=== PATIENT | male | born 1975 | race Caucasian/White ===

== ENCOUNTER 2018-11-15 19:21 | Outpatient (REF) | payer BC, SELFPAY ==
[2018-11-15 22:29] LABS: ALT 54 U/L (12-78); AST 24 U/L (15-37); Albumin 3.7 g/dL (3.4-5.0); Alkaline Phosphatase 101 U/L (46-116); Anion Gap 5.6 mmol/L (3-11); BUN 13 mg/dL (7-18); Bilirubin, Total 0.6 mg/dL (0.2-1.0); CO2 31.4 mmol/L (21.0-32.0); CREATININE 0.97 mg/dL (0.70-1.30); Chloride 103 mmol/L (98-107); Cholesterol 213 mg/dL (50-200); Glucose 107 mg/dL (70-100); HDL Cholesterol 32 mg/dL (40-60); LDL CHOLESTEROL 154 mg/dL (<100); Potassium 4.5 mmol/L (3.5-5.1); Sodium 140 mmol/L (136-145); Total Protein 7.5 g/dL (6.4-8.2); Triglyceride 218 mg/dL (30-150)
[2018-11-15 22:45] LABS: COMMENT (LAB VIEW ONLY) 185.34 mg/dL; Microalb ug/mg Crea 5.1 ug/mg Cr
[2018-11-15 23:02] LABS: Hemoglobin A1C 6.5 % (4.5-6.2)
[2018-11-19 17:09] LABS: Testosterone, Free 2.52 ng/dL (4.46-17.1); Testosterone, Total 120 ng/dL (240-950)
== END 2018-11-15 19:41 ==
LOC: NCHCN 19:21
PROVIDERS: PCP Family Medicine; Visit Provider Family Medicine
DX: I10 Essential (primary) hypertension (principal); R68.82 Decreased libido; E11.9 Type 2 diabetes mellitus without complications; G47.33 Obstructive sleep apnea (adult) (pediatric); Z87.898 Personal history of other specified conditions; E66.01 Morbid (severe) obesity due to excess calories; Z82.79 Family history of other congenital malformations, deformations and chromosomal abnormalities
CPT/HCPCS: 80053; 80061; 83721; 84402; 84403; 82043; 82570; 83036

== ENCOUNTER 2019-11-14 22:14 | Outpatient (REF) | payer BC, SELFPAY ==
[2019-11-14 22:55] LABS: ALT 52 U/L (16-63); AST 19 U/L (15-37); Alkaline Phosphatase 102 U/L (46-116); Anion Gap 7.1 mmol/L (3-11); BUN 13 mg/dL (7-18); Bilirubin, Total 0.5 mg/dL (0.2-1.0); CO2 29.9 mmol/L (21.0-32.0); CREATININE 0.98 mg/dL (0.70-1.30); Calcium 8.8 mg/dL (8.5-10.1); Calculated LDL 63 mg/dL; Chloride 103 mmol/L (98-107); Cholesterol 120 mg/dL (<200); Glucose 134 mg/dL (74-106); HDL Cholesterol 33 mg/dL (40-60); Potassium 4.2 mmol/L (3.5-5.1); Sodium 140 mmol/L (136-145); Total Protein 7.5 g/dL (6.4-8.2); Triglyceride 122 mg/dL (<150)
[2019-11-14 23:04] LABS: Hemoglobin A1C 6.4 % (3.8-5.6)
== END 2019-11-14 22:34 ==
LOC: NCHCN 22:14
PROVIDERS: PCP Family Medicine; Visit Provider Family Medicine
DX: Z00.00 Encounter for general adult medical examination without abnormal findings (principal); E11.9 Type 2 diabetes mellitus without complications; E78.5 Hyperlipidemia, unspecified; E66.01 Morbid (severe) obesity due to excess calories
CPT/HCPCS: 80053; 80061; 83036

== ENCOUNTER 2020-10-22 18:56 | Outpatient (REF) | payer BC, SELFPAY ==
[2020-10-22 22:31] LABS: ALT 44 U/L (16-63); AST 16 U/L (15-37); Albumin 4.1 g/dL (3.4-5.0); Alkaline Phosphatase 98 U/L (46-116); Anion Gap 6.6 mmol/L (3-11); BUN 13 mg/dL (7-18); Bilirubin, Total 0.5 mg/dL (0.2-1.0); CO2 30.4 mmol/L (21.0-32.0); CREATININE 1.06 mg/dL (0.70-1.30); Calcium 8.8 mg/dL (8.5-10.1); Chloride 103 mmol/L (98-107); Glucose 116 mg/dL (74-106); Potassium 4.2 mmol/L (3.5-5.1); Sodium 140 mmol/L (136-145); Total Protein 7.8 g/dL (6.4-8.2)
[2020-10-22 22:35] LABS: COMMENT (LAB VIEW ONLY) 178.04 mg/dL; Microalb ug/mg Crea 5.6 ug/mg Cr
== END 2020-10-22 19:16 ==
LOC: NCHCN 18:56
PROVIDERS: PCP Family Medicine; Visit Provider Family Medicine
DX: Z00.00 Encounter for general adult medical examination without abnormal findings (principal); E11.9 Type 2 diabetes mellitus without complications; R80.9 Proteinuria, unspecified
CPT/HCPCS: 80053; 82043; 82570

== ENCOUNTER 2022-04-07 17:04 | Outpatient (REF) | payer OTHER, SELFPAY ==
[2022-04-07 21:46] LABS: ALT 37 U/L (16-63); Anion Gap 6.1 mmol/L (3-11); BUN 8 mg/dL (7-18); CO2 27.9 mmol/L (21.0-32.0); Calcium 8.5 mg/dL (8.5-10.1); Calculated LDL 124 mg/dL (<100); Chloride 106 mmol/L (98-107); Cholesterol 187 mg/dL (<200); Glucose 137 mg/dL (74-106); HDL Cholesterol 37 mg/dL (40-60); Potassium 4.4 mmol/L (3.5-5.1); Sodium 140 mmol/L (136-145); Triglyceride 133 mg/dL (<150)
[2022-04-07 22:29] LABS: COMMENT (LAB VIEW ONLY) 251.88 mg/dL; Microalb ug/mg Crea 4.6 ug/mg Cr
== END 2022-04-07 17:05 | disposition home or self-care (01) ==
LOC: NCHCN 17:04
PROVIDERS: PCP Family Medicine; Visit Provider Family Medicine
DX: E11.9 Type 2 diabetes mellitus without complications (principal); I10 Essential (primary) hypertension; E66.01 Morbid (severe) obesity due to excess calories; Z00.00 Encounter for general adult medical examination without abnormal findings
CPT/HCPCS: 80048; 80061; 82043; 82570; 84460

== ENCOUNTER 2023-07-13 16:20 | Outpatient (REF) | payer OTHER, SELFPAY ==
[2023-07-13 21:53] LABS: COMMENT (LAB VIEW ONLY) 273.57 mg/dL; Microalb ug/mg Crea 5.5 ug/mg Cr
== END 2023-07-13 16:21 | disposition home or self-care (01) ==
LOC: NCHCN 16:20
PROVIDERS: PCP Family Medicine; Visit Provider Family Medicine
DX: E11.9 Type 2 diabetes mellitus without complications (principal)
CPT/HCPCS: 82043; 82570

== ENCOUNTER 2023-10-12 09:29 | Outpatient (REF) | payer OTHER, SELFPAY ==
[2023-10-12 21:47] LABS: Hemoglobin A1C 5.5 % (<5.7)
[2023-10-12 21:57] LABS: Calculated LDL 152 mg/dL (<100); Cholesterol 215 mg/dL (<200); HDL Cholesterol 38 mg/dL (40-60); Triglyceride 129 mg/dL (<150)
== END 2023-10-12 09:30 | disposition home or self-care (01) ==
LOC: NCHCN 09:29
PROVIDERS: PCP Family Medicine; Visit Provider Family Medicine
DX: E11.9 Type 2 diabetes mellitus without complications (principal)
CPT/HCPCS: 80061; 83036

== ENCOUNTER 2024-01-11 21:12 | Outpatient (REF) | payer OTHER, SELFPAY ==
[2024-01-11 21:54] LABS: Microalb ug/mg Crea 4.5 ug/mg Cr
== END 2024-01-11 21:13 | disposition home or self-care (01) ==
LOC: NCHCN 21:12
PROVIDERS: PCP Family Medicine; Visit Provider Family Medicine
DX: E11.9 Type 2 diabetes mellitus without complications (principal)
CPT/HCPCS: 82043; 82570

== ENCOUNTER 2025-02-27 18:48 | Outpatient (REF) | payer OTHER, SELFPAY ==
[2025-02-27 22:18] LABS: COMMENT (LAB VIEW ONLY) 329.73 mg/dL
== END 2025-02-27 18:49 | disposition home or self-care (01) ==
LOC: NCHCN 18:48
PROVIDERS: PCP Family Medicine; Visit Provider Family Medicine
DX: E11.9 Type 2 diabetes mellitus without complications (principal)
CPT/HCPCS: 82043; 82570

== ENCOUNTER 2025-08-21 15:27 | Outpatient (REF) | payer OTHER, SELFPAY ==
[2025-08-21 22:15] LABS: ALT 49 U/L (16-63); AST 22 U/L (15-37); Albumin 4.3 g/dL (3.4-5.0); Alkaline Phosphatase 93 U/L (46-116); Anion Gap 10.6 mmol/L (3-11); BUN 9 mg/dL (7-18); Bilirubin, Total 0.9 mg/dL (0.2-1.0); CO2 28.4 mmol/L (21.0-32.0); Calcium 9.0 mg/dL (8.5-10.1); Calculated LDL 88 mg/dL (<100); Chloride 104 mmol/L (98-107); Cholesterol 143 mg/dL (<200); Estimated GFR 91.69 (mL/min/1.73m2); Glucose 97 mg/dL (74-106); HDL Cholesterol 44 mg/dL (>or=40); Potassium 4.3 mmol/L (3.5-5.1); Sodium 143 mmol/L (136-145); Total Protein 8.2 g/dL (6.4-8.2); Triglyceride 59 mg/dL (<150)
[2025-08-22 17:40] LABS: PSA, Screening 0.6 ng/mL (<=3.5)
[2025-08-22 18:17] LABS: HIV-1/2 Ag & Ab Screen Negative (Negative)
[2025-08-22 18:19] LABS: Hepatitis C Ab w Rflx HCV PCR Negative (Negative)
== END 2025-08-21 15:28 | disposition home or self-care (01) ==
LOC: NCHCN 15:27
PROVIDERS: PCP Family Medicine; Visit Provider Family Medicine
DX: Z11.59 Encounter for screening for other viral diseases (principal); E78.5 Hyperlipidemia, unspecified; Z11.4 Encounter for screening for human immunodeficiency virus [HIV]; I10 Essential (primary) hypertension
CPT/HCPCS: 80053; 80061; 84153; 86803; 87389; 83036